=== PATIENT | female | born 1975 | race Caucasian/White ===

== ENCOUNTER 2023-10-30 11:42 | Emergency (ER) | payer MEDICAID ==
[~2023-10-30] VITALS: Ht 170.2 cm; Wt 60.3 kg
[2023-10-30 12:05] VITALS: BP 148/92; PULSE 92; TEMP 98.1; O2SAT 98
[2023-10-30] MEDS ORDERED: AMOX500C2 PO (14:02)
[2023-10-30] MEDS ORDERED: NAPR500T6 PO (14:03)
[2023-10-30 14:16] VITALS: RESP 14
[2023-10-30] MEDS: ketorolac trometh. 30mg/ml inj. IM ONE (14:16)
== END 2023-10-30 14:23 | disposition home or self-care (01) ==
LOC: ER 11:43
DX: K08.89 Other specified disorders of teeth and supporting structures (principal); Z88.2 Allergy status to sulfonamides; Z88.1 Allergy status to other antibiotic agents; Z79.2 Long term (current) use of antibiotics; Z79.899 Other long term (current) drug therapy
CPT/HCPCS: 96372; 99283; J1885